=== PATIENT | male | born 1965 | race Caucasian/White ===

== ENCOUNTER 2019-07-02 07:51 | Day surgery (SDC) | payer MEDICAID ==
[~2019-07-02 07:51] MED LIST: Bupivacaine 0.5% 50 ML MDV ONE; Lidocaine 1% with EPINEPHrine 1:100,000 50 ML MDV ONE
[2019-07-02] MEDS ORDERED: Dextrose 5%-Lactated Ringers 1,000 ML IV SCH (08:30)
[2019-07-02] MEDS ORDERED: ceFAZolin 2 GM in Sodium Chloride 0.9% 50 ML IV ONE (09:00)
[2019-07-02] MEDS ORDERED: ceFAZolin 2 GM in Premix Bag 1 BAG IV ONE (09:00)
[2019-07-02] MEDS ORDERED: fentaNYL 100 MCG/2 ML SDV ONE (09:12)
[2019-07-02] MEDS ORDERED: Propofol 200 MG/20 ML SDV ONE ×2 (09:13→10:44)
[2019-07-02] MEDS ORDERED: Midazolam 1 MG/ML 2 ML SDV ONE (09:13)
[2019-07-02] MEDS ORDERED: Acetaminophen/HYDROcodone 325-5 MG Tab PO PRN (11:50)
--- NOTE | 2019-07-03 11:38 | OR ---
DATE OF PROCEDURE: 07/02/2019 PREOPERATIVE DIAGNOSIS: Umbilical hernia. POSTOPERATIVE DIAGNOSIS: Umbilical hernia. PROCEDURE: Umbilical hernia repair with suture closure. SURGEON: Charbel Vazquez MD ANESTHESIA: IV anesthesia with monitored anesthesia care. INDICATION: This 53-year-old white male has a very small reducible umbilical hernia. He is here to have it repaired. I counseled him for repair of this possibly with mesh, including risks and alternatives, and he gave his informed consent to proceed. DESCRIPTION OF PROCEDURE: After adequate IV anesthesia was obtained, the patient's abdomen was prepped and draped in the usual sterile fashion. Time-out was held. Lidocaine 1% with epinephrine in a 50:50 mix with 0.5% Marcaine was infiltrated about the umbilicus. An infraumbilical semicircular incision was made. The umbilicus was divided from the underlying hernia defect. It was noted that there was preperitoneal fat pushing out through the defect. This was excised and sent to the laboratory. The defect was quite small. It would barely pass the tip of the Bev clamp through it. Inferiorly, there was no evidence of additional hernias. A [id number]-vo-[id number] stitch of 0 Prolene was used to close the fascial defect. The umbilicus was attached to the underlying fascia with an interrupted stitch of 2-0 Vicryl, 4-0 Vicryl using a subcuticular stitch was placed to approximate the skin. Dermabond and a sterile dressing were applied. The patient tolerated the procedure well and was brought from the operating room in good condition. Charbel Vazquez MD /[id number] MTDD
== END 2019-07-02 12:30 | disposition home or self-care (01) ==
LOC: JP.SDS 07:51
PROVIDERS: ATTEND Surgery
DX: K42.9 Umbilical hernia without obstruction or gangrene (principal); K21.9 Gastro-esophageal reflux disease without esophagitis; Z88.8 Allergy status to other drugs, medicaments and biological substances; Z88.6 Allergy status to analgesic agent
CPT/HCPCS: 49585; A9270; J0690; J2250; J2704; J3010; J3490; J7042; J7050; 88302